=== PATIENT | male | born 1935 | race Two or more races ===

== ENCOUNTER 2018-02-14 18:18 | Outpatient (CLI) | payer OTHER | END 2018-02-15 08:57 | disposition home or self-care (01) | LOC: RAD 18:18 | DX: I48.2 Chronic atrial fibrillation (principal) ==

== ENCOUNTER 2018-09-03 09:34 | Outpatient (CLI) | payer OTHER | END 2018-09-03 15:53 | disposition home or self-care (01) | LOC: TOM 09:34 | DX: K57.32 Diverticulitis of large intestine without perforation or abscess without bleeding (principal) ==

== ENCOUNTER 2018-09-14 16:11 | Outpatient (CLI) | payer OTHER | END 2018-09-14 16:20 | disposition home or self-care (01) | LOC: RAD 16:11 | DX: Z13.6 Encounter for screening for cardiovascular disorders (principal) ==

== ENCOUNTER 2021-09-21 13:17 | Outpatient (CLI) | payer OTHER | END 2021-09-21 13:28 | disposition home or self-care (01) | LOC: RAD 13:17 | PROVIDERS: ATTEND Internal Medicine | DX: J06.9 Acute upper respiratory infection, unspecified (principal); B97.89 Other viral agents as the cause of diseases classified elsewhere ==

== ENCOUNTER 2021-11-01 11:04 | Outpatient (CLI) | payer OTHER | END 2021-11-01 11:07 | disposition home or self-care (01) | LOC: SONOGRAMA 11:04 | PROVIDERS: ATTEND Pathology Anatomic Pathology & Clinical Pathology | DX: E04.2 Nontoxic multinodular goiter (principal) ==

== ENCOUNTER 2023-01-16 14:13 | Outpatient (CLI) | payer OTHER | END 2023-01-16 14:16 | disposition home or self-care (01) | LOC: SONOGRAMA 14:13 | PROVIDERS: ATTEND Internal Medicine Endocrinology, Diabetes & Metabolism | DX: E04.2 Nontoxic multinodular goiter (principal) ==

== ENCOUNTER 2023-03-08 15:25 | Outpatient (CLI) | payer OTHER | END 2023-03-08 15:32 | disposition home or self-care (01) | LOC: RAD 15:25 | DX: Z01.818 Encounter for other preprocedural examination (principal) ==

== ENCOUNTER 2023-07-04 10:13 | Outpatient (CLI) | payer OTHER | END 2023-07-04 10:23 | disposition home or self-care (01) | LOC: SONOGRAMA 10:13 | DX: K56.0 Paralytic ileus (principal) ==

== ENCOUNTER 2024-03-14 08:03 | Outpatient (CLI) | payer OTHER | END 2024-03-14 08:12 | disposition home or self-care (01) | LOC: SONOGRAMA 08:03 | PROVIDERS: ATTEND Physical Medicine & Rehabilitation | DX: E71.30 Disorder of fatty-acid metabolism, unspecified (principal) ==

== ENCOUNTER 2024-06-06 09:25 | Outpatient (CLI) | payer OTHER | END 2024-06-06 09:30 | disposition home or self-care (01) | LOC: SONOGRAMA 09:25 | PROVIDERS: ATTEND Pathology Anatomic Pathology & Clinical Pathology | DX: D34 Benign neoplasm of thyroid gland (principal); E04.2 Nontoxic multinodular goiter ==

== ENCOUNTER 2024-07-09 09:34 | Outpatient (CLI) | payer OTHER | END 2024-07-09 09:41 | disposition home or self-care (01) | LOC: MRI 09:34 | PROVIDERS: ATTEND Ophthalmology | DX: H35.3221 Exudative age-related macular degeneration, left eye, with active choroidal neovascularization (principal) | CPT/HCPCS: 70553; Q9965 ==

== ENCOUNTER 2025-04-22 08:48 | Outpatient (CLI) | payer OTHER | END 2025-04-22 08:50 | disposition home or self-care (01) | LOC: MRI 08:48 | PROVIDERS: ATTEND Ophthalmology | DX: G43.B0 Ophthalmoplegic migraine, not intractable (principal) | CPT/HCPCS: 70553; Q9965 ==

== ENCOUNTER 2025-05-29 08:07 | Outpatient (CLI) | payer OTHER | END 2025-05-29 08:17 | disposition home or self-care (01) | LOC: RAD 08:07 | DX: R07.89 Other chest pain (principal) ==

== ENCOUNTER 2025-06-09 10:33 | Outpatient (CLI) | payer OTHER | END 2025-06-09 13:25 | disposition home or self-care (01) | LOC: EKG 10:33 | PROVIDERS: ATTEND Internal Medicine | DX: Z01.818 Encounter for other preprocedural examination (principal) ==